=== PATIENT | male | born 1990 | race African-American/Black ===

== ENCOUNTER 2021-06-04 11:45 | Inpatient (IN) | payer OTHER ==
[~2021-06-04] VITALS: Ht 170.2 cm; Wt 55.5 kg
[2021-06-04 12:22] LABS: HEMATOCRIT 44.2 % (42.0-52.0); HEMOGLOBIN 14.3 g/dl (13.5-17.5); MEAN CORPUSCULAR HEMOGLOBIN 26.7 pg (27.0-33.0); MEAN CORPUSCULAR HGB CONC 32.4 g/dl (32.0-36.5); MEAN CORPUSCULAR VOLUME 82.5 fl (80.0-96.0); PLATELET COUNT, AUTOMATED 221 10^3/uL (150-450); RED BLOOD COUNT 5.36 10^6/uL (4.30-6.10); WHITE BLOOD COUNT 12.7 10^3/uL (4.0-10.0)
[2021-06-04 13:03] LABS: ACETAMINOPHEN LEVEL < 2.0 UG/ML (10.0-30.0); ALBUMIN 4.1 GM/DL (3.2-5.2); ALT/SGPT 35 U/L (12-78); BILIRUBIN,DIRECT 0.1 MG/DL (0.0-0.2); BILIRUBIN,TOTAL 0.4 MG/DL (0.2-1.0); BLOOD UREA NITROGEN 12 MG/DL (7-18); CARBON DIOXIDE LEVEL 28 MEQ/L (21-32); CHLORIDE LEVEL 109 MEQ/L (98-107); CREATININE FOR GFR 1.31 MG/DL (0.70-1.30); ETHYL ALCOHOL (ETHANOL) < 0.003 % (0.000-0.010); GLOMERULAR FILTRATION RATE > 60.0 (>60); GLUCOSE, FASTING 71 MG/DL (70-100); SALICYLATE LEVEL < 1.7 MG/DL (5.0-30.0); SODIUM LEVEL 143 MEQ/L (136-145); TOTAL PROTEIN 7.4 GM/DL (6.4-8.2)
[2021-06-04 13:13] LABS: RSV AMPLIFICATION NEGATIVE (NEGATIVE)
[2021-06-04 13:28] LABS: AMPHETAMINES LEVEL URINE NEGATIVE (NEGATIVE); BARBITURATES URINE NEGATIVE (NEGATIVE); BENZODIAZEPINES URINE NEGATIVE (NEGATIVE); CANNABINOIDS URINE NEGATIVE (NEGATIVE); COCAINE METABOLITE URINE NEGATIVE (NEGATIVE); METHADONE URINE NEGATIVE (NEGATIVE); OPIATES URINE NEGATIVE (NEGATIVE); PHENCYCLIDINE URINE NEGATIVE (NEGATIVE)
[2021-06-04] MEDS ORDERED: MOM 30ML SUSPENSION UDC PO PRN (14:40)
[2021-06-04] MEDS ORDERED: MAALOX 30 ML SUSP *UDC PO PRN (14:40)
[2021-06-04] MEDS ORDERED: ACETAMINOPHEN TAB 650MG DOSE (2X325MG) PO PRN (14:40)
[2021-06-04 15:37] VITALS: BP 120/82
[2021-06-04] MEDS: traZODone 50 MG TAB PO PRN (22:00)
[2021-06-05 07:05] VITALS: BP 119/57
[2021-06-05 07:45] VITALS: BP 146/80
[2021-06-05] MEDS: NICOTINE 7 MG/24 HR TRANSDERMAL TD SCH (08:27)
[2021-06-05] MEDS ORDERED: hydrOXYzine 25 MG TAB PO PRN (12:55)
[2021-06-05] MEDS ORDERED: SERTRALINE HCL 25 MG TABLET PO ONE (12:55)
--- NOTE | 2021-06-05 12:57 | MHHPEPDOC ---
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 He states "I hold my problems in and do not saying anything to anyone. My Content Production Specialist has on my butt since February, and it sent me off. We work day in and day out, we are working everyday and including weekends. And according to her nothing ever seems to be right. We have inspections and get graded and it is not good enough. She threatens to take my rank away while putting others down and praising others as opposed to those who are there 02/06. On Friday I couldn't take it, but instead of having an outburst or actually doing. I just went back to work. (instead of doing any of the things that I said was going to do) While walking - I told someone in that building what I was thinking about doing that I was going to take a knife and cut from wrist to elbow and they said do it maybe you can have the day off" Patient refused to say who said this to him. He states, "I am allergic to eggs and I should just carry those around." Reports that depression since before he enlisted in the [employer] but it was been worse since being in [place], since February 2021. He states that he was most content at [facility] [place] from [phone] - he had family nearby and had a support system there. PER ED REPORT: Pt. is +SI with plan to cut his arm. 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 He has not deployed but he was stationed in [place]. 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 PT arrived to [facility] 02/2021 and he self-enrolled at [facility] as he had been seeing a provider for depression at his prior duty station. Friday Pt. had an altercation with his supervisor receiving and processing and he was belittled in front of peers and he was threatened with loss of rank. Pt. describes himself as someone who keeps things bottled up until his stress level is very high. He denies acting out and states that he can tell he is feeling different "I wanted to cut my wrist in front of my supervisor receiving and processing, drop the knife an d then walk out". It is alleged that Pt clearly made a statement that he wanted to cut his wrist during the confrontation and the response he received was "Go ahead and do it" and it was not reported. He is unsure if his SI is out of anger or if he wants to as he has had intermittent SI for many years. He does not feel safe in his room at the [facility] as he has many knives and no longer trusts himself. He feels that his roommate is a good person and friend but Pt has not let him know that he was actively suicidal until this morning when he was talking with his brother. Pt shared how he was feeling and his brother told him to get help immediately or he would tell their mother who is currently battling cancer. Pt. presented to the [facility] who arranged transport by EMS. PT feels "I'm ready to snap" and he cannot CFS. He has one suicide attempt at age 13 when he tried to drown in a friend's pool only to be pulled out. 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 Psychiatric Review of Systems Depression (2 or more weeks): depressed mood, anhedonia, insomnia/hypersomnia (trouble stauing asleep, get about 3-4 hours of sleep per night), feelings of excess/guilt, feelings of worthlesness, appetite changes (less hungry), suicidal thoughts, other (less patient , more irritable) Anna (4 or more days of): irritable/elevated mood PTSD: history of trauma, nightmares and flashbacks Past Psychiatric History Previous Psychiatric Diagnosis: Depression Previous Psychiatric Admissions: This is first Suicide Attempts: age 13, tried to drown himself, but passed it off as having a muscle cramp Psychiatric Follow-up: [facility] Psychiatric medications: Wellbutrin - does not remember it's effectiveness, Past Medical History Medical Problems Pulmonary Valve Stenosis Surgery [place] teeth AllergiesL PCNS, Eggs Head Injury: No Seizures: No Hospitalizations: No Surgeries: No Family Medical/Psychiatric HX Medical Problems Brother s- bipolar Brother - asthma Maternal Grandmother Cardiac Mother - Cancer, won't tell pt what kind of cancer Mat Grandfather - Cancer - Prostate Psychiatric Disorders: Yes Addiction: Yes (Father = ETOH, Mat Gradfather ETOH) Suicide Attemps/Completions: No Addiction History nicotine (cigarettes - 1 pack per week, vapes), alcohol (1-2 times during the week) Social History Childhood: [place], Describes childhood as "Empty" Has 3 brothers (one adopted brother and 1 adopted Sister) and from Mom, but has 3 brothers, 2 Sisters from Dad Abuse/Trauma: Reports childhood Current Living Situation: . Education: Active Duty [employer] x 10 years Employment: [employer] Social Support: Brother Legal: None Marital: Single, Never , No Children. Mental Status Examination General Appearance: well groomed, appears stated age, hospital scubs/clothing Build: average Demeanor: average Eye Contact: average Activity: average Behavior: cooperative Speech: clear Mood: depressed Affect: constricted Thought Process: logical/linear Thought Content (Delusions): none reported Thought Content (Other): none reported Thought Content (Aggressive): none reported Perception (Hallucinations): none reported Perception (Other): none reported Cognition (Impairment of): none reported Cognition(Intelligence Est.): average Oriented: Awake, Alert, Oriented times three Insight: fair Judgment: Fair Psychosis: Denies Diagnoses Major Depressive Disorder, Single Episode, Moderate Nicotine Use Disorder Mild Alcohol Use Disorder A-FIB/CHADSVASC A-FIB History Current/History of A-Fib/PAF?: No Current PO Anticoag Therapy: No Age/Risk Factor Scoring CHADSVASC: CHADSVASC Response (Comments) Value Age Risk Factor Age < 65 years old 0 Gender Risk Factor Male 0 Hx of CHF No 0 Hx of HTN No 0 Hx of Stroke/TIA/or VTE No 0 Hx of Diabetes No 0 Hx of Vascular Disease No 0 Total 0 Treatment Treatment ordered: NONE Assessment 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 He states "I hold my problems in and do not saying anything to anyone. He reports feeling frustration with his Content Production Specialist who doesn't recognize the amount of work he is doing, and states that she threatens to take his rank away while putting others down and praising [place]. He reports being very depressed and has been having strong suicidal thoughts to cut himself vertically which he seems to have thought out as more lethal. Patient denies significant substance use, but reports that he has poor supports in [place] and reports that since being here, his depression and frustration is very high. Patient to be admitted to my service on a 9.39 legal status, he is agreeable to starting Zoloft, although he has had Wellbutrin in the past he states that that he does not remember its effectiveness. Hydroxyzine for anxiety is ordered. Patient is encouraged to attend groups, be visible on the unit and be engaged/participate in individual sessions. Patient to be discharged back to [place] with services to their [facility] when he is stable and free of self-harm thinking. Initial Treatment Plan 1. Patient was admitted on a [9.39] status. 2. Complete history was obtained. 3. With patients permission, family will be contacted and database will be expanded. 4. Patients medication regimen will be reviewed and changed accordingly. 5. Patient will be provided with protected environment. 6. Patient will be treated with individual, group, and milieu therapies. 7. Patient will receive supportive psych-education. 8. Discharge planning will commence immediately. 9. Outpatient follow-up treatment will be strongly recommended. 10. The initial treatment plan will focus initially on: * Depression. * Risk for suicide. ESTIMATED LENGTH OF STAY: - DAYS. TIME SPENT COUNSELING AND COORDINATING INITIAL CARE: minutes. Tobacco Cessation Screen If Patient is a Smoker Smokes 1 pack per week Tobacco Cessation Tx Ordered?: Yes N/A-No Antipsychotics Vital Signs Vital Signs Date Time Temp Pulse Resp B/P (MAP) Pulse Ox O2 Delivery O2 Flow Rate FiO2 06/05/21 07:45 98.1 76 20 146/80 (102) 99 06/05/21 07:05 Room Air Laboratory Data 24H Labs Laboratory Tests 2 06/04/21 12:11: Nucleated Red Blood Cells % (auto) 0.0, Anion Gap 6L, Glomerular Filtration Rate > 60.0, Calcium Level 9.0, Total Bilirubin 0.4, Direct Bilirubin 0.1, Aspartate Amino Transf (AST/SGOT) 18, Alanine Aminotransferase (ALT/SGPT) 35, Alkaline Phosphatase 43L, Total Protein 7.4, Albumin 4.1, Albumin/Globulin Ratio 1.2, Thyroid Stimulating Hormone (TSH) 2.060, Salicylates Level < 1.7L, Urine Opiates Screen NEGATIVE, Urine Methadone Screen NEGATIVE, Acetaminophen Level < 2.0L, Urine Barbiturates Screen NEGATIVE, Urine Phencyclidine Screen NEGATIVE, Urine Amphetamines Screen NEGATIVE, Urine Benzodiazepines Screen NEGATIVE, Urine Cocaine Metabolite Screen NEGATIVE, Urine Cannabinoids Screen NEGATIVE, Ethyl Alcohol Level < 0.003 06/04/21 12:21: Coronavirus (COVID-19)(PCR) NEGATIVE, Influenza Type A (RT-PCR) NEGATIVE, Influenza Type B (RT-PCR) NEGATIVE, Respiratory Syncytial Virus (PCR) NEGATIVE CBC/BMP Laboratory Tests 06/04/21 12:11 Medications No Active Prescriptions or Reported Meds Allergies Coded Allergies: Penicillins (Verified Allergy, Unknown, ANAPHYLAXSIS, 06/04/21) ANTONY CORTES NP Jun 05, 2021 10:05
--- NOTE | 2021-06-05 14:33 | HPEPDOC ---
General Date of Admission Jun 04, 2021 at 14:40 Date of Service: Jun 05, 2021 Chief Complaint The patient is a 31-year-old male admitted with a reason for visit of Unspecified Depressive Do. Source: Patient History of Present Illness Patient is 31 years old male with past medical history of depression/anxiety presented to hospital with suicidal ideation. Pt. had an altercation with his supervisor case loading and he was belittled in front of peers and he was threatened with loss of rank and after that he developed suicidal ideation. Patient denies fever, chills, nausea, vomiting, chest pain, palpitations diarrhea dysuria Home Medications No Active Prescriptions or Reported Meds Allergies Coded Allergies: Penicillins (Verified Allergy, Unknown, ANAPHYLAXSIS, 06/04/21) Past Medical History Medical History Depression/anxiety Family History Brother s- bipolar Brother - asthma Maternal Grandmother Cardiac Mother - Cancer, won't tell pt what kind of cancer Mat Grandfather - Cancer - Prostate Social History * Smoker: current smoker Alcohol: occationally Drugs: denies A-FIB/CHADSVASC A-FIB History Current/History of A-Fib/PAF?: No Current PO Anticoag Therapy: No Age/Risk Factor Scoring CHADSVASC: CHADSVASC Response (Comments) Value Age Risk Factor Age < 65 years old 0 Gender Risk Factor Male 0 Hx of CHF No 0 Hx of HTN No 0 Hx of Stroke/TIA/or VTE No 0 Hx of Diabetes No 0 Hx of Vascular Disease No 0 Total 0 Review of Systems Constitutional: Denies: Chills Eyes: Denies: Pain ENT: Denies: Head Aches Skin: Denies: Rash Pulmonary: Denies: Dyspnea Cardiovascular: Denies: Chest Pain Gastrointestinal: Denies: Nausea Genitourinary: Denies: Dysuria Hematologic: Denies: Bruising Endocrine: Denies: Polydipsia Musculoskeletal: Denies: Neck Pain Neurological: Denies: Weakness Psych: Reports: Depression Physical Examination General Exam: Positive: Alert, Cooperative Eye Exam: Positive: PERRLA ENT Exam: Positive: Atraumatic Neck Exam: Positive: Supple; Negative: JVD Chest Exam: Positive: Clear to auscultation Heart Exam: Positive: Rate Normal Telemetry: Positive: No significant arrhythmia Abdomen Exam: Positive: Normal bowel sounds Extremity Exam: Negative: Clubbing Skin Exam: Positive: Nl turgor and temperature Neuro Exam: Positive: Normal Gait Psych Exam: Positive: Oriented x 3 Vital Signs Vital Signs Date Time Temp Pulse Resp B/P (MAP) Pulse Ox O2 Delivery O2 Flow Rate FiO2 06/05/21 07:45 98.1 76 20 146/80 (102) 99 06/05/21 07:05 Room Air Assessment/Plan Patient is 31 years old male with past medical history of depression/anxiety presented to hospital with suicidal ideation. Pt. had an altercation with his supervisor case loading and he was belittled in front of peers and he was threatened with loss of rank and after that he developed suicidal ideation. Patient denies fever, chills, nausea, vomiting, chest pain, palpitations diarrhea dysuria Problems (1) Suicidal ideation Status: Acute Problem Text: Defer treatment to psych team Plan / VTE VTE Prophylaxis Ordered?: No VTE Exclusion Mechanical Proph: Low Risk for VTE GODFREY WALKER DO Jun 05, 2021 14:33
[2021-06-05 17:59] VITALS: BP 127/74
[2021-06-05] MEDS: traZODone 50 MG TAB PO PRN (20:33)
[2021-06-06 06:42] VITALS: BP 109/56
[2021-06-06] MEDS: NICOTINE 7 MG/24 HR TRANSDERMAL TD SCH (08:00)
[2021-06-06] MEDS ORDERED: SERTRALINE HCL 50 MG TAB PO ONE (09:00)
--- NOTE | 2021-06-06 12:01 | MHIPNPDOC ---
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 He states "I hold my problems in and do not saying anything to anyone. My Area Forester has on my butt since February, and it sent me off. We work day in and day out, we are working every day and including weekends. And according to her nothing ever seems to be right. We have inspections and get graded and it is not good enough. She threatens to take my rank away while putting others down and praising others as opposed to those who are there 02/06. On Friday I couldn't take it, but instead of having an outburst or actually doing. I just went back to work. (instead of doing any of the things that I said was going to do) While walking - I told someone in that building what I was thinking about doing that I was going to take a knife and cut from wrist to elbow and they said do it maybe you can have the day off" Patient refused to say who said this to him. He states, "I am allergic to eggs and I should just carry those around." Reports that depression since before he enlisted in the [employer] but it was been worse since being in [place], since February 2021. He states that he was most content at [facility] from [phone] - he had family nearby and had a support system there. PER ED REPORT: Pt. is +SI with plan to cut his arm. 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 He has not deployed but he was stationed in [place]. 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 PT arrived to [facility] 02/2021 and he self-enrolled at [facility] as he had been seeing a provider for depression at his prior duty station. Friday Pt. had an altercation with his boatbuilder supervisor and he was belittled in front of peers and he was threatened with loss of rank. Pt. describes himself as someone who keeps things bottled up until his stress level is very high. He denies acting out and states that he can tell he is feeling different "I wanted to cut my wrist in front of my boatbuilder supervisor, drop the knife and then walk out". It is alleged that Pt clearly made a statement that he wanted to cut his wrist during the confrontation and the response he received was "Go ahead and do it" and it was not reported. He is unsure if his SI is out of anger or if he wants to as he has had intermittent SI for many years. He does not feel safe in his room at the [facility] as he has many knives and no longer trusts himself. He feels that his roommate is a good person and friend bu t Pt has not let him know that he was actively suicidal until this morning when he was talking with his brother. Pt shared how he was feeling and his brother told him to get help immediately or he would tell their mother who is currently battling cancer. Pt. presented to the [facility] who arranged transport by EMS. PT feels "I'm ready to snap" and he cannot CFS. He has one suicide attempt at age 13 when he tried to drown in a friend's pool only to be pulled out. 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 VITAL SIGNS: See below. CURRENT MEDICATIONS: See below. 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 Appearance: Well-kempt, appropriate behavior, smiles upon approach Eye Contact: Maintains good eye contact Speech: Is fluid, conversant, normal rate, tone and volume Language skills are intact Thought processes including: linear and goal oriented Thought content: reports continued depression and anxiety. Denies suicidal/homicidal ideation, planning or intent. Abstract reasoning, and computation: fair Description of associations: denies, none observed Description of abnormal or psychotic thoughts: denies, none observed. Judgment: fair Insight: fair Orientation: alert and oriented to person, place, time and situation Recent and remote memory: intact Attention span and concentration: good Language: expansive Fund of knowledge: average Mood: Depressed Mood Affect: reactive DIAGNOSES: Major Depressive Disorder, Single Episode, Moderate Nicotine Use Disorder Mild Alcohol Use Disorder ASSESSMENT: Patient reports that his depression is decreasing, states that he is not feeling suicidal today. Is requesting to be discharged on Friday and states that while he still has lingering depression, he would like to return to work. 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 He is visible on the unit, social and adherent to the treatment plan. States that his depression was consistently 10/10 and today it is an 8/10, feels that the improvement is due to better sleep but reports that he was awake numerous times during the night. MANAGEMENT PLAN: Continue all medications and supportive therapy. Increase Trazodone to 75 mg tonight per his continued complaints of intermittent sleep. Discharge on Friday TIME SPENT: 25 minutes. Vital Signs Vital Signs Date Time Temp Pulse Resp B/P (MAP) Pulse Ox O2 Delivery O2 Flow Rate FiO2 06/06/21 06:42 98.9 59 18 109/56 (73) 100 Room Air Current Medications Current Medications Medications (Trade) Dose Ordered Sig/Gricelda Route PRN Reason Start Time Stop Time Status Last Admin Dose Admin Acetaminophen (Tylenol Tab) 650 mg Q6HP PRN PO HEADACHE or MILD DISCOMFORT 06/04/21 14:40 Al Hydrox/Mg Hydrox/Simethicone (Mylanta) 30 ml Q4HP PRN PO HEARTBURN/INDIGESTION 06/04/21 14:40 Home Med (Med Rec Complete!) ASDIRECTED XX 06/04/21 14:40 06/04/21 14:38 DC Hydroxyzine HCl (Atarax) 25 mg Q6HP PRN PO ANXIETY 06/05/21 12:55 Magnesium Hydroxide (Milk Of Magnesia) 30 ml DAILYPRN PRN PO CONSTIPATION 06/04/21 14:40 Nicotine (Nicoderm Cq 7 Mg) 1 patch DAILY TD 06/05/21 09:00 06/06/21 08:00 Trazodone HCl (Desyrel) 50 mg QHSP PRN PO INSOMNIA 06/04/21 14:40 06/05/21 20:33 Allergies Coded Allergies: Penicillins (Verified Allergy, Unknown, ANAPHYLAXSIS, 06/04/21) ANTONY CORTES SUPERINTENDENT RENTING MANAGING Jun 06, 2021 12:01
[2021-06-06] MEDS: traZODone 50 MG TAB PO PRN (21:14)
[2021-06-07 06:18] VITALS: BP 103/57
--- NOTE | 2021-06-07 08:34 | MHIPNPDOC ---
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 He states "I hold my problems in and do not saying anything to anyone. My Thread Puller has on my butt since February, and it sent me off. We work day in and day out, we are working every day and including weekends. And according to her nothing ever seems to be right. We have inspections and get graded and it is not good enough. She threatens to take my rank away while putting others down and praising others as opposed to those who are there 02/06. On Friday I couldn't take it, but instead of having an outburst or actually doing. I just went back to work. (instead of doing any of the things that I said was going to do) While walking - I told someone in that building what I was thinking about doing that I was going to take a knife and cut from wrist to elbow and they said do it maybe you can have the day off" Patient refused to say who said this to him. He states, "I am allergic to eggs and I should just carry those around." Reports that depression since before he enlisted in the [employer] but it was been worse since being in [place], since February 2021. He states that he was most content at [facility] from [phone] - he had family nearby and had a support system there. PER ED REPORT: Pt. is +SI with plan to cut his arm. 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 He has not deployed but he was stationed in [place]. 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 PT arrived to [facility] 02/2021 and he self-enrolled at [facility] as he had been seeing a provider for depression at his prior duty station. Friday Pt. had an altercation with his ammunition supervisor and he was belittled in front of peers and he was threatened with loss of rank. Pt. describes himself as someone who keeps things bottled up until his stress level is very high. He denies acting out and states that he can tell he is feeling different "I wanted to cut my wrist in front of my ammunition supervisor, drop the knife and then walk out". It is alleged that Pt clearly made a statement that he wanted to cut his wrist during the confrontation and the response he received was "Go ahead and do it" and it was not reported. He is unsure if his SI is out of anger or if he wants to as he has had intermittent SI for many years. He does not feel safe in his room at the [facility] as he has many knives and no longer trusts himself. He feels that his roommate is a good person and friend bu t Pt has not let him know that he was actively suicidal until this morning when he was talking with his brother. Pt shared how he was feeling and his brother told him to get help immediately or he would tell their mother who is currently battling cancer. Pt. presented to the [facility] who arranged transport by EMS. PT feels "I'm ready to snap" and he cannot CFS. He has one suicide attempt at age 13 when he tried to drown in a friend's pool only to be pulled out. 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 VITAL SIGNS: See below. CURRENT MEDICATIONS: See below. 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 Appearance: Well-kempt, appropriate behavior, smiles upon approach Eye Contact: Maintains good eye contact Speech: Is fluid, conversant, normal rate, tone and volume Language skills are intact Thought processes including: linear and goal oriented Thought content: reports decreased depression and anxiety. Denies suicidal/homicidal ideation, planning or intent. Abstract reasoning, and computation: fair Description of associations: denies, none observed Description of abnormal or psychotic thoughts: denies, none observed. Judgment: good Insight: good Orientation: alert and oriented to person, place, time and situation Recent and remote memory: intact Attention span and concentration: good Language: expansive Fund of knowledge: average Mood: Depressed Mood Affect: reactive DIAGNOSES: Major Depressive Disorder, Single Episode, Moderate Nicotine Use Disorder Mild Alcohol Use Disorder ASSESSMENT: States that he attended group and says this was helpful - "letter from someone" self-therapy - stated that he had an imaginary friend growing up but he was able to share in groups about his imaginary friend. Played guitar yesterday in free activities group. States he is ready for discharge tomorrow. 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 States that when he supervises the kitchen he is supervising serving for hundreds of soldiers for 3 meals. MANAGEMENT PLAN: Continue all medications and supportive therapy. Increase Trazodone to 100 mg tonight per his continued complaints of intermittent sleep. Discharge tomorrow. TIME SPENT: 25 minutes. Vital Signs Vital Signs Date Time Temp Pulse Resp B/P (MAP) Pulse Ox O2 Delivery O2 Flow Rate FiO2 06/07/21 06:18 97.7 52 16 103/57 (72) 96 Room Air Current Medications Current Medications Medications (Trade) Dose Ordered Sig/Gricelda Route PRN Reason Start Time Stop Time Status Last Admin Dose Admin Acetaminophen (Tylenol Tab) 650 mg Q6HP PRN PO HEADACHE or MILD DISCOMFORT 06/04/21 14:40 Al Hydrox/Mg Hydrox/Simethicone (Mylanta) 30 ml Q4HP PRN PO HEARTBURN/INDIGESTION 06/04/21 14:40 Home Med (Med Rec Complete!) ASDIRECTED XX 06/04/21 14:40 06/04/21 14:38 DC Hydroxyzine HCl (Atarax) 25 mg Q6HP PRN PO ANXIETY 06/05/21 12:55 Magnesium Hydroxide (Milk Of Magnesia) 30 ml DAILYPRN PRN PO CONSTIPATION 06/04/21 14:40 Nicotine (Nicoderm Cq 7 Mg) 1 patch DAILY TD 06/05/21 09:00 06/06/21 08:00 Trazodone HCl (Desyrel) 50 mg QHSP PRN PO INSOMNIA 06/04/21 14:40 06/06/21 21:14 Allergies Coded Allergies: Penicillins (Verified Allergy, Unknown, ANAPHYLAXSIS, 06/04/21) ANTONY CORTES NP Jun 07, 2021 08:34
[2021-06-07] MEDS ORDERED: TRAZ-257 PO (08:37)
[2021-06-07] MEDS ORDERED: NICO7PA TD (08:37)
[2021-06-07] MEDS ORDERED: ZOLO50TA PO (08:39)
[2021-06-07] MEDS: NICOTINE 7 MG/24 HR TRANSDERMAL TD SCH (08:45)
[2021-06-07] MEDS: SERTRALINE HCL 50 MG TAB PO SCH (08:45)
[2021-06-07 17:51] VITALS: BP 144/84
[2021-06-07] MEDS ORDERED: traZODone 100 MG TAB PO SCH (21:00)
[2021-06-08 05:51] VITALS: BP 105/55
[2021-06-08] MEDS: NICOTINE 7 MG/24 HR TRANSDERMAL TD SCH (08:19)
[2021-06-08] MEDS: SERTRALINE HCL 50 MG TAB PO SCH (08:19)
--- NOTE | 2021-06-08 10:48 | MHDSPDOC ---
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 He states "I hold my problems in and do not saying anything to anyone. My Watch [employer] Grinder has on my butt since February, and it sent me off. We work day in and day out, we are working every day and including weekends. And according to her nothing ever seems to be right. We have inspections and get graded and it is not good enough. She threatens to take my rank away while putting others down and praising others as opposed to those who are there 02/06. On Friday I couldn't take it, but instead of having an outburst or actually doing. I just went back to work. (instead of doing any of the things that I said was going to do) While walking - I told someone in that building what I was thinking about doing that I was going to take a knife and cut from wrist to elbow and they said do it maybe you can have the day off" Patient refused to say who said this to him. He states, "I am allergic to eggs and I should just carry those around." Reports that depression since before he enlisted in the [employer] but it was been worse since being in [place], since February 2021. He states that he was most content at [facility] from [phone] - he had family nearby and had a support system there. PER ED REPORT: Pt. is +SI with plan to cut his arm. 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 He has not deployed but he was stationed in [place]. 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 PT arrived to [facility] 02/2021 and he self-enrolled at [facility] as he had been seeing a provider for depression at his prior duty station. Friday Pt. had an altercation with his land management supervisor and he was belittled in front of peers and he was threatened with loss of rank. Pt. describes himself as someone who keeps things bottled up until his stress level is very high. He denies acting out and states that he can tell he is feeling different "I wanted to cut my wrist in front of my land management supervisor, drop the knife and then walk out". It is alleged that Pt clearly made a statement that he wanted to cut his wrist during the confrontation and the response he received was "Go ahead and do it" and it was not reported. He is unsure if his SI is out of anger or if he wants to as he has had intermittent SI for many years. He does not feel safe in his room at the [facility] as he has many knives and no longer trusts himself. He feels that his roommate is a good person and friend but Pt has not let him know that he was actively suicidal until this morning when he was talking with his brother. Pt shared how he was feeling and his brother told him to get help immediately or he would tell their mother who is currently battling cancer. Pt. presented to the [facility] who arranged transport by EMS. PT feels "I'm ready to snap" and he cannot CFS. He has one suicide attempt at age 13 when he tried to drown in a friend's pool only to be pulled out. 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 VITAL SIGNS: See below. 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 He states "I hold my problems in and do not saying anything to anyone. He reported frustration with his Watch [employer] Grinder threatens to take his rank away while putting others down and praising others. He reports being very depressed strong suicidal thoughts to cut himself vertically which he seems to have thought out as more lethal. Patient denies significant substance use, but reports that he has poor supports in [place] and reports that since being here, his depression and frustration is very high. Patient was admitted to my service on a 9.39 legal status, was agreeable to starting Zoloft 50 mg, Hydroxyzine for anxiety is ordered and Trazodone 50 mg for sleep. He reported no adverse effects and stated that he has significant decreased in depression and requesting to be disc harged today. DISCHARGE ASSESSMENT: In today's interview, patient is alert and oriented, pts dress is appropriate. Hygiene and grooming is well-kempt. Smiles on approach and is pleasant and engaged in the interview. Denies depression and anxiety. Denies suicidal and homicidal ideation, planning or intent. Denies and is not observed with teresa, psychotic symptoms of delusions, bizarre thinking, obsessions, paranoia, ruminations illogical thoughts, flight of ideas or having poor insight and judgement. Patient has normal mentation, declines further hospitalization on a voluntary status and meets criteria for discharge today. 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 Speech: Is fluid, conversant, normal rate, tone and volume Language skills are intact Thought processes including: linear and goal oriented Thought content: denies depression and anxiety. Denies suicidal/homicidal ideation, planning or intent. Abstract reasoning, and computation: fair Description of associations: denies, none observed Description of abnormal or psychotic thoughts: denies, none observed. Judgment: good Insight: good Orientation: alert and oriented to person, place, time and situation Recent and remote memory: intact Attention span and concentration: good Language: expansive Fund of knowledge: average Mood: Euthymic Mood Affect: reactive MEDICATIONS ON DISCHARGE: See Medication Reconciliation PLAN/FOLLOWUP ARRANGEMENTS: [facility] [facility] The amount of time spent in the coordination of care for this patient was approximately 25 minutes. ETOH/Disorder Med Rx ETOH/DRUG DISORDER RX: N/A Vital Signs/I&Os Vital Signs Date Time Temp Pulse Resp B/P (MAP) Pulse Ox O2 Delivery O2 Flow Rate FiO2 7/30/21 05:51 98.9 60 16 105/55 (72) 99 Room Air Medications Scheduled Nicotine (Nicotine Patch) 7 Mg Patch.td24, 1 PATCH TD DAILY for nicotine withdrawal, #7 Sertraline Hcl (Zoloft) 50 Mg Tablet, 50 MG PO DAILY for Depression, #7 Trazodone HCl (Trazodone HCl) 100 Mg Tablet, 100 MG PO QHS for Sleep, #7 Allergies Coded Allergies: Penicillins (Verified Allergy, Unknown, ANAPHYLAXSIS, 06/04/21) ANTONY CORTES NP Jun 08, 2021 10:43
== END 2021-06-08 11:11 | disposition home or self-care (01) | DRG 885 ==
LOC: M ED 11:45 → M ED INP 14:40 → M PSY 15:44
PROVIDERS: ADMIT Psychiatry & Neurology Psychiatry; ATTEND Psychiatry & Neurology Psychiatry
DX: F33.1 Major depressive disorder, recurrent, moderate (principal); R45.851 Suicidal ideations; F17.210 Nicotine dependence, cigarettes, uncomplicated; F17.290 Nicotine dependence, other tobacco product, uncomplicated; F10.10 Alcohol abuse, uncomplicated; Z56.4 Discord with boss and workmates; Z20.822 Contact with and (suspected) exposure to COVID-19; Z88.0 Allergy status to penicillin

== ENCOUNTER 2023-08-11 10:22 | Emergency (ER) | payer OTHER ==
[~2023-08-11] VITALS: Ht 170.2 cm; Wt 58.2 kg
[~2023-08-11 10:22] MED LIST: NICO7PA TD; TRAZ-257 PO; ZOLO50TA PO
[2023-08-11] MEDS ORDERED: NS 1,000 ML IV ONE (12:45)
[2023-08-11 12:57] LABS: BASO # 0.1 10^3/uL (0.0-0.2); BASO % 0.8 % (0.0-1.0); EOS # 0.7 10^3/uL (0.0-0.5); EOS % 8.2 % (0.0-3.0); HEMATOCRIT 45.6 % (42.0-52.0); HEMOGLOBIN 15.1 g/dl (13.5-17.5); LYMPH # 2.4 10^3/uL (1.5-5.0); MEAN CORPUSCULAR HEMOGLOBIN 27.2 pg (27.0-33.0); MEAN CORPUSCULAR HGB CONC 33.1 g/dl (32.0-36.5); MEAN CORPUSCULAR VOLUME 82.2 fl (80.0-96.0); MONO # 0.5 10^3/uL (0.0-0.8); MONO % 6.5 % (2.0-8.0); NEUTROPHILS # 4.6 10^3/uL (1.5-8.5); NEUTROPHILS % 55.1 % (36.0-66.0); PLATELET COUNT, AUTOMATED 250 10^3/uL (150-450); RED BLOOD COUNT 5.55 10^6/uL (4.30-6.10); WHITE BLOOD COUNT 8.3 10^3/uL (4.0-10.0)
[2023-08-11 13:20] LABS: BLOOD UREA NITROGEN 13 MG/DL (9-23); CALCIUM LEVEL 9.1 MG/DL (8.5-10.1); CARBON DIOXIDE LEVEL 29 MMOL/L (20-31); CHLORIDE LEVEL 107 MMOL/L (98-107); CK-MB VALUE MASS < 1.0 NG/ML (<3.6); CPK CREATINE PHOSPHOKINASE 116 U/L (46-171); CREATININE FOR GFR 1.09 MG/DL (0.70-1.30); GLOMERULAR FILTRATION RATE > 60.0 (>60); GLUCOSE, FASTING 72 MG/DL (60-100); MB/CK RELATIVE INDEX 0.86 (< OR =4); POTASSIUM SERUM 4.2 MMOL/L (3.5-5.1); SODIUM LEVEL 141 MMOL/L (136-145)
[2023-08-11] MEDS ORDERED: ISOVUE-370 76% 100ML VIAL As Ordered ONE (13:25)
[2023-08-11 13:29] LABS: INR 1.12; PROTHROMBIN TIME 14.1 SECONDS (12.5-14.5)
[2023-08-11 13:30] LABS: PARTIAL THROMBOPLASTIN TIME 30.4 SECONDS (24.8-34.2)
[2023-08-11 14:24] LABS: LIPASE 40 U/L (12-53)
[2023-08-11 14:27] LABS: ALBUMIN 4.3 G/DL (3.2-5.2); ALKALINE PHOSPHATASE 49 U/L (46-116); ALT/SGPT 31 U/L (7.0-40); AST/SGOT 20 U/L (<34); BILIRUBIN,DIRECT 0.1 MG/DL (<0.4); BILIRUBIN,TOTAL 0.3 MG/DL (0.3-1.2); TOTAL PROTEIN 7.4 G/DL (5.7-8.2)
[2023-08-11 14:29] LABS: FREE T4 1.23 NG/DL (0.89-1.76); THYROID STIMULATING HORMONE 2.927 uIU/ML (0.55-4.78)
[2023-08-11 16:02] LABS: CK-MB VALUE MASS < 1.0 NG/ML (<3.6)
[2023-08-11 16:07] LABS: CPK CREATINE PHOSPHOKINASE 118 U/L (46-171); MB/CK RELATIVE INDEX 0.84 (< OR =4)
[2023-08-11 17:10] VITALS: BP 124/73; TEMP 98; O2SAT 99
== END 2023-08-11 17:19 | disposition home or self-care (01) ==
LOC: M ED 10:22
DX: R07.89 Other chest pain (principal); I10 Essential (primary) hypertension; F32.A Depression, unspecified; F17.200 Nicotine dependence, unspecified, uncomplicated; Z88.0 Allergy status to penicillin; Z91.012 Allergy to eggs
CPT/HCPCS: 71045; 71275; 80048; 80076; 82550; 82553; 83690; 83880; 84439; 84443; 84484; 85025; 85610; 85730; 93005; 93041; 94760; 96360; 96361; 99285; Q9967

== ENCOUNTER 2024-07-08 18:23 | Emergency (ER) | payer OTHER ==
[~2024-07-08] VITALS: Ht 170.2 cm; Wt 51.4 kg
[2024-07-08 19:03] LABS: HEMATOCRIT 39.2 % (42.0-52.0); HEMOGLOBIN 13.1 g/dl (13.5-17.5); MEAN CORPUSCULAR HEMOGLOBIN 26.8 pg (27.0-33.0); MEAN CORPUSCULAR HGB CONC 33.4 g/dl (32.0-36.5); MEAN CORPUSCULAR VOLUME 80.2 fl (80.0-96.0); PLATELET COUNT, AUTOMATED 180 10^3/uL (150-450); RED BLOOD COUNT 4.89 10^6/uL (4.30-6.10); WHITE BLOOD COUNT 7.2 10^3/uL (4.0-10.0)
[2024-07-08 19:30] LABS: BASOPHILS 1 % (0-1); EOSINOPHILS 2 % (0-3); LYMPHOCYTES 23 % (16-44); MONOCYTES 5 % (0-5); NEUTROPHILS 69 % (28-66); PLATELET ESTIMATE NORMAL (NORMAL)
[2024-07-08 19:37] VITALS: TEMP 97.5; O2SAT 100
[2024-07-08 19:39] LABS: FREE T4 1.47 NG/DL (0.89-1.76)
[2024-07-08 19:42] LABS: BLOOD UREA NITROGEN < 5 MG/DL (9-23); CALCIUM LEVEL 9.4 MG/DL (8.5-10.1); CARBON DIOXIDE LEVEL 26 MMOL/L (20-31); CHLORIDE LEVEL 108 MMOL/L (98-107); CREATININE FOR GFR 1.04 MG/DL (0.70-1.30); GLOMERULAR FILTRATION RATE > 60.0 (>60); GLUCOSE, FASTING 83 MG/DL (60-100); MAGNESIUM LEVEL 1.7 MG/DL (1.8-2.4); POTASSIUM SERUM 3.5 MMOL/L (3.5-5.1); SODIUM LEVEL 140 MMOL/L (136-145)
[2024-07-08 19:46] LABS: AMPHETAMINES LEVEL URINE NEGATIVE (NEGATIVE); BARBITURATES URINE NEGATIVE (NEGATIVE); BENZODIAZEPINES URINE NEGATIVE (NEGATIVE); CANNABINOIDS URINE NEGATIVE (NEGATIVE); COCAINE METABOLITE URINE NEGATIVE (NEGATIVE); METHADONE URINE NEGATIVE (NEGATIVE); OPIATES URINE NEGATIVE (NEGATIVE); PHENCYCLIDINE URINE NEGATIVE (NEGATIVE)
[2024-07-08] MEDS ORDERED: ACETAMINOPHEN 325 MG TAB PO ONE (20:30)
[2024-07-08 21:35] VITALS: BP 127/80
== END 2024-07-08 22:23 | disposition home or self-care (01) ==
LOC: EDBD 18:23 → M ED 18:23
DX: R55 Syncope and collapse (principal); S00.93XA Contusion of unspecified part of head, initial encounter; W19.XXXA Unspecified fall, initial encounter; Y93.9 Activity, unspecified; Y92.9 Unspecified place or not applicable; Y99.9 Unspecified external cause status; Z88.0 Allergy status to penicillin; Q25.6 Stenosis of pulmonary artery; F32.A Depression, unspecified